=== PATIENT | female | born 1980 | race Caucasian/White ===

== ENCOUNTER 2017-12-01 00:19 | Emergency (ER) | payer MEDICAID ==
[~2017-12-01] VITALS: Ht 162.6 cm; Wt 69.0 kg
[~2017-12-01 00:19] MED LIST: ALBU0.63 NEB; ALBU8.5H5 INH; ALBU8.5H8 INH; ALPR0.25 PO; CEFD300C37 PO; DOXY100T PO; FLUT1BLS INH; FLUT1DIS; FLUT1DIS3 INH; FLUT1DIS5 IH; GUAI600T31 PO; IPRA3AMP30 INH; LEVO500T47 PO; LEVO750T26 PO; LORA-445 PO; LORA10TA75 PO; NICO-486 TD; ONDA4VIA8 PO; PRED10TA14 PO; PRED5TAB PO; SERT100T5 PO
[2017-12-01] MEDS ORDERED: EPINEPHRINE 1 MG/ML, 1ML ONE (00:21)
[2017-12-01] MEDS ORDERED: methylPREDNISolone SOD SUCC 125 MG/2 ML ONE (00:21)
[2017-12-01] MEDS ORDERED: FAMOTIDINE 20 MG/2 ML ONE (00:22)
[2017-12-01] MEDS ORDERED: AZITHROMYCIN 250 MG TABLET PO ONE (00:30)
[2017-12-01] MEDS ORDERED: methylPREDNISolone SOD SUCC 125 MG/2 ML IVP ONE (00:30)
[2017-12-01] MEDS ORDERED: MAGNESIUM SULFATE PMX 2GM/50ML 50 ML IVPB ONE (00:30)
[2017-12-01] MEDS ORDERED: IPRATROPIUM 0.5 MG/2.5 ML INHA NPPB ONE (00:30)
[2017-12-01] MEDS ORDERED: SODIUM CHLORIDE 0.9% 1,000ML IVBOLUS ONE (00:30)
[2017-12-01] MEDS ORDERED: ALBUTEROL/IPRATROPIUM 2.5MG/0.5MG, 3 ML ONE (00:34)
[2017-12-01] MEDS: ALBUTEROL 0.5%, 20ML NPPB SCH ×2 (00:37→01:27)
[2017-12-01] MEDS ORDERED: AZITHROMYCIN 250 MG TABLET ONE (00:39)
[2017-12-01 00:43] LABS: BASOPHILS # (AUTO) 0.06 x10^3/uL (0-0.1); BASOPHILS % (AUTO) 1 % (0-1); EOSINOPHILS # (AUTO) 0.82 x10^3/uL (0-0.4); EOSINOPHILS % (AUTO) 8 % (1-7); LYMPHOCYTES % (AUTO) 32 % (22-44); MD NO; MEAN CORPUSCULAR HEMOGLOBIN 34.7 pg (27.0-34.8); MEAN CORPUSCULAR HGB CONC 34.7 g/dL (32.4-35.8); MEAN CORPUSCULAR VOLUME 99.9 fL (80-100); MEAN PLATELET VOLUME 7.8 fL (7.4-10.4); MONOCYTES # (AUTO) 0.79 x10^3/uL (0.2-0.8); MONOCYTES % (AUTO) 8 % (2-9); NEUTROPHILS # (AUTO) 5.13 x10^3/uL (1.8-6.8); NEUTROPHILS % (AUTO) 51 % (42-75); PLATELET COUNT 256 x10^3/uL (130-400); RED BLOOD COUNT 3.82 x10^6/uL (3.82-5.3); RED CELL DISTRIBUTION WIDTH 13.6 % (9.6-15.2)
[2017-12-01 00:55] LABS: ALBUMIN 3.2 g/dL (3.4-5.0); ANION GAP 10 mmol/L (5-15); CALCIUM 8.6 mg/dL (8.5-10.1); CHLORIDE 108 mmol/L (98-107); CREATININE 0.63 mg/dL (0.55-1.02)
[2017-12-01 00:59] LABS: TROPONIN I < 0.015 ng/mL (0.000-0.045)
[2017-12-01 03:17] VITALS: BP 114/65
== END 2017-12-01 03:18 | disposition home or self-care (01) ==
LOC: ED 02:14
DX: T78.2XXA Anaphylactic shock, unspecified, initial encounter (principal); J45.41 Moderate persistent asthma with (acute) exacerbation; Z87.891 Personal history of nicotine dependence; J44.9 Chronic obstructive pulmonary disease, unspecified
CPT/HCPCS: 36415; 71045; 80048; 82040; 84484; 85025; 93005; 94640; 96365; 96366; 96375; 99291; J2930; J3475; J7030; J7644

== ENCOUNTER 2018-10-09 17:55 | Emergency (ER) | payer MEDICAID ==
[~2018-10-09] VITALS: Ht 162.6 cm; Wt 61.4 kg
[~2018-10-09 17:55] MED LIST changes: +ONDA4VIA60 PO; -ONDA4VIA8 PO; +SERT100T32 PO; -SERT100T5 PO
[2018-10-09 18:11] VITALS: BP 119/74
--- NOTE | 2018-10-09 18:40 | NUR ---
PT STATES TODAY SHE STARTED FEELING DIZZY TODAY AND THAT IS WHY SHE CAME TO THE ER
--- NOTE | 2018-10-09 18:40 | NUR ---
PT NOTED TO HAVE TO DIFFERENT LESIONS WITH A [place]Y [place]KE OF ERYTHEMA AROUND THEM. PT STATES THEY APPEARED 3 DAYS AGO AND THAT SHE BECAME NAUSEATED AT THE SAME TIME. PT STATES TODAY SHE VOMITED. SHE HAS UPPER BACK AND NECK PAIN THAT DEVELOPED. SHE ADDITONALLY COMPLAINS OF DENTAL PAIN. PT STATES THAT HER RECENTLY AND THAT SHE HAS BEEN SMOKING AND DRINKING MORE THAN NORMAL.
--- NOTE | 2018-10-09 19:22 | NUR ---
TASK RN: PT D/C WITH D/C SUMMARY. ALL QUESTIONS ANSWERED. PT AMBULATES TO REGISTRTION DESK WITH STEADY GAIT FOR D/C HOME. PT DENIES ANY OTHER NEEDS PERTAINING TO THIS VISIT.
--- NOTE | 2018-10-09 19:24 | NUR ---
Patient given discharge instructions and they have confirmed that they understand the instructions. Patient ambulatory with steady gait.
== END 2018-10-09 19:24 | disposition home or self-care (01) ==
LOC: ED 19:23
DX: T63.391A Toxic effect of venom of other spider, accidental (unintentional), initial encounter (principal); L03.116 Cellulitis of left lower limb; J44.9 Chronic obstructive pulmonary disease, unspecified; F41.1 Generalized anxiety disorder; F17.200 Nicotine dependence, unspecified, uncomplicated; Y92.89 Other specified places as the place of occurrence of the external cause; Y99.8 Other external cause status; Y93.89 Activity, other specified
CPT/HCPCS: 99283

== ENCOUNTER 2019-02-11 12:15 | Emergency (ER) | payer MEDICAID ==
[~2019-02-11] VITALS: Ht 162.6 cm; Wt 61.1 kg
[2019-02-11] MEDS ORDERED: SODIUM CHLORIDE FLUSH 10ML SYR IVF ONE (13:00)
[2019-02-11] MEDS ORDERED: DEXAMETHASONE 4 MG TABLET ONE (13:23)
[2019-02-11] MEDS ORDERED: DIPHENHYDRAMINE 50 MG CAPSULE ONE (13:23)
[2019-02-11] MEDS ORDERED: DEXAMETHASONE 4 MG TABLET PO ONE (13:30)
[2019-02-11] MEDS ORDERED: DIPHENHYDRAMINE 50 MG CAPSULE PO ONE (13:30)
[2019-02-11 13:54] VITALS: BP 123/88
--- NOTE | 2019-02-11 13:57 | NUR ---
BREAK RN NOTE: PT A&O, RESPS EVEN AND UNLABORED, TONGUE SWELLING RESOLVED. PT STATES SHE FEELS BETTER. PT ABLE TO SPEAK IN FULL SENTENCES WITHOUT DIFFICULTY, PT HAVING NO DIFFICULTY MANAGING OWN SECRETIONS. AWAITING MD REASSESSMENT AND DISPO. CALL LIGHT IN REACH.
--- NOTE | 2019-02-11 14:08 | NUR ---
REPORT GIVEN TO PRIMARY RN'S MARY.
--- NOTE | 2019-02-11 14:35 | NUR ---
Patient given discharge instructions and they have confirmed that they understand the instructions. Patient ambulatory with steady gait.
== END 2019-02-11 14:40 | disposition home or self-care (01) ==
LOC: ED 14:30
DX: T78.49XA Other allergy, initial encounter (principal); R22.9 Localized swelling, mass and lump, unspecified; J44.9 Chronic obstructive pulmonary disease, unspecified; X58.XXXA Exposure to other specified factors, initial encounter
CPT/HCPCS: 93005; 99283

== ENCOUNTER 2019-05-09 17:41 | Inpatient (IN) | payer MEDICAID ==
[~2019-05-09] VITALS: Ht 162.6 cm; Wt 65.0 kg
[2019-05-09] MEDS ORDERED: ALBUTEROL/IPRATROPIUM 2.5MG/0.5MG, 3 ML ONE ×2 (18:48)
[2019-05-09 19:00] LABS: BASOPHILS # (AUTO) 0.03 x10^3/uL (0-0.1); BASOPHILS % (AUTO) 1 % (0-1); EOSINOPHILS # (AUTO) 0.76 x10^3/uL (0-0.4); EOSINOPHILS % (AUTO) 13 % (1-7); LYMPHOCYTES % (AUTO) 42 % (22-44); MD NO; MEAN CORPUSCULAR HEMOGLOBIN 34.8 pg (27.0-34.8); MEAN CORPUSCULAR HGB CONC 34.1 g/dL (32.4-35.8); MEAN PLATELET VOLUME 7.9 fL (7.4-10.4); MONOCYTES % (AUTO) 7 % (2-9); NEUTROPHILS # (AUTO) 2.17 x10^3/uL (1.8-6.8); NEUTROPHILS % (AUTO) 38 % (42-75); PLATELET COUNT 235 x10^3/uL (130-400); RED BLOOD COUNT 3.91 x10^6/uL (3.82-5.3); RED CELL DISTRIBUTION WIDTH 13.3 % (9.6-15.2)
[2019-05-09] MEDS ORDERED: SODIUM CHLORIDE FLUSH 10ML SYR IVF ONE (19:00)
[2019-05-09] MEDS ORDERED: MAGNESIUM SULFATE PMX 2GM/50ML 50 ML IV ONE (19:00)
[2019-05-09] MEDS ORDERED: methylPREDNISolone SOD SUCC 125 MG/2 ML IV ONE (19:00)
--- NOTE | 2019-05-09 19:00 | NUR ---
ASSUMED CARE OF PT AT THIS TIME.
[2019-05-09] MEDS ORDERED: MAGNESIUM SULFATE PMX 2GM/50ML 50 ML ONE (19:06)
[2019-05-09] MEDS ORDERED: methylPREDNISolone SOD SUCC 125 MG/2 ML ONE (19:06)
[2019-05-09 19:07] LABS: ALBUMIN 3.7 g/dL (3.4-5.0); ANION GAP 5 mmol/L (5-15); CALCIUM 9.1 mg/dL (8.5-10.1); CHLORIDE 111 mmol/L (98-107); CREATININE 0.76 mg/dL (0.55-1.02)
[2019-05-09 19:11] LABS: TROPONIN I < 0.015 ng/mL (0.000-0.045)
--- NOTE | 2019-05-09 19:20 | NUR ---
RT AT BEDSIDE FOR 2ND TREATMENT. THIS IS A 38 YO FEMALE WHO PRESENTS TO THE ER C/O COUGH X 1 WEEK. PT HAS HX OF SEVERE ASTHMA AND REPORTS FEELING SOB AND DOING MX NEB TREATMENTS AT HOME W/O RELIEF. PT ABLE TO SPEAK IN FULL 7-10 WORD SENTENCES W/O DIFFICULTY. FREQUENT COUGH NOTED. PT MEDICATED ORDERED. PT ON CONT BP, CARDIAC AND O2 MONITORS. PT DENIES NEEDS AT THIS TIME. CALL LIGHT WITHIN REACH. WILL CONT TO MONITOR PT.
[2019-05-09] MEDS: ALBUTEROL/IPRATROPIUM 2.5MG/0.5MG, 3 ML NPPB SCH ×2 (19:21→19:28)
--- NOTE | 2019-05-09 20:30 | NUR ---
PT SLEEPING ON GURNEY IN QUIET, DARK ROOM. RESP EVEN AND UNLABORED. PT ON CONT BP AND 2O MONITORS. CALL LIGHT WITHIN REACH. WILL CONT TO MONITOR PT.
--- NOTE | 2019-05-09 21:29 | NUR ---
PT CURRENTLY DOZING ON BRADY. PT AWAKENS EASILY TO NAME BEING CALLED. NAD NOTED. SKIN PWD. RESP EVEN AND UNLABORED. COUGH IMPORVED AT THIS TIME. CALL LIGHT WITHIN REACH. WILL CONT TO MONITOR PT.
[2019-05-09] MEDS: methylPREDNISolone SOD SUCC 125 MG/2 ML IVPush SCH (21:51)
[2019-05-09] MEDS ORDERED: NICOTINE 21 MG/24 HR PATCH.TD24 ONE (21:53)
[2019-05-09] MEDS: NICOTINE 21 MG/24 HR PATCH.TD24 TD SCH (21:56)
[2019-05-09] MEDS ORDERED: ONDANSETRON 2MG/ML, 2ML IVPush PRN (22:00)
[2019-05-09] MEDS ORDERED: hydrALAzine 20 MG/ML, 1ML IVPush PRN (22:00)
[2019-05-09] MEDS ORDERED: ALBUTEROL/IPRATROPIUM 2.5MG/0.5MG, 3 ML NPPB PRN (22:00)
[2019-05-09 22:25] VITALS: BP 113/75
[2019-05-09] MEDS: ACETAMINOPHEN 325 MG TABLET PO PRN (22:56)
[2019-05-10] MEDS: ALBUTEROL/IPRATROPIUM 2.5MG/0.5MG, 3 ML NPPB SCH ×4 (00:48→19:27)
[2019-05-10 03:23] VITALS: BP 108/66
[2019-05-10] MEDS: methylPREDNISolone SOD SUCC 125 MG/2 ML IVPush SCH ×4 (03:27→23:08)
[2019-05-10 06:06] LABS: MEAN CORPUSCULAR HEMOGLOBIN 34.8 pg (27.0-34.8); MEAN CORPUSCULAR VOLUME 102.4 fL (80-100); MEAN PLATELET VOLUME 8.2 fL (7.4-10.4); PLATELET COUNT 247 x10^3/uL (130-400); RED BLOOD COUNT 4.04 x10^6/uL (3.82-5.3); RED CELL DISTRIBUTION WIDTH 13.4 % (9.6-15.2)
[2019-05-10 06:12] LABS: ANION GAP 9 mmol/L (5-15); CALCIUM 8.9 mg/dL (8.5-10.1); CHLORIDE 104 mmol/L (98-107)
[2019-05-10 06:13] LABS: CREATININE 0.85 mg/dL (0.55-1.02)
[2019-05-10] MEDS ORDERED: LORA10TA75 PO (06:19)
[2019-05-10 06:38] LABS: BASOPHILS # (AUTO) 0.01 x10^3/uL (0-0.1); BASOPHILS % (AUTO) 0 % (0-1); EOSINOPHILS % (AUTO) 0 % (1-7); LYMPHOCYTES # (AUTO) 0.64 x10^3/uL (1-3.4); LYMPHOCYTES % (AUTO) 15 % (22-44); MD SCAN; MONOCYTES # (AUTO) 0.05 x10^3/uL (0.2-0.8); MONOCYTES % (AUTO) 1 % (2-9); NEUTROPHILS # (AUTO) 3.65 x10^3/uL (1.8-6.8); NEUTROPHILS % (AUTO) 84 % (42-75)
[2019-05-10 07:30] VITALS: BP 116/78
[2019-05-10] MEDS: BUDESONIDE 0.5 MG/2 ML INHA NPPB SCH ×2 (08:04→19:27)
[2019-05-10] MEDS ORDERED: AZITHROMYCIN 500 MG TABLET PO ONE (09:00)
[2019-05-10] MEDS: DOXYCYCLINE 100MG TABLET PO SCH ×2 (09:44→20:03)
[2019-05-10] MEDS: GUAIFENESIN 200 MG TABLET PO SCH ×3 (09:44→20:04)
[2019-05-10] MEDS: CEFTRIAXONE PMX 2GM/50ML 50 ML IV SCH (09:44)
[2019-05-10] MEDS ORDERED: CALCIUM CARBONATE 500 MG TAB.CHEW PO PRN (11:00)
[2019-05-10] MEDS: INSULIN LISPRO 100 UNITS/ML, PEN SQ-INSULIN SCH ×3 (12:43→21:55)
[2019-05-10 13:45] VITALS: BP 100/58
[2019-05-10] MEDS: LORATADINE 10 MG TABLET PO SCH (13:46)
[2019-05-10 19:10] VITALS: BP 119/62
[2019-05-10] MEDS: NICOTINE 21 MG/24 HR PATCH.TD24 TD SCH (21:55)
[2019-05-11] MEDS ORDERED: MAGNESIUM SULFATE PMX 2GM/50ML 50 ML IV ONE ×2 (02:00→09:30)
[2019-05-11] MEDS: ALBUTEROL/IPRATROPIUM 2.5MG/0.5MG, 3 ML NPPB SCH ×5 (02:21→20:08)
[2019-05-11] MEDS ORDERED: LORazepam 2 MG/ML, 1ML IVPush ONE (02:30)
[2019-05-11] MEDS: methylPREDNISolone SOD SUCC 125 MG/2 ML IVPush SCH ×4 (04:52→23:06)
[2019-05-11] MEDS: BUDESONIDE 0.5 MG/2 ML INHA NPPB SCH ×2 (07:20→20:08)
[2019-05-11] MEDS: INSULIN LISPRO 100 UNITS/ML, PEN SQ-INSULIN SCH (08:17)
[2019-05-11] MEDS: GUAIFENESIN 200 MG TABLET PO SCH (08:17)
[2019-05-11] MEDS: LORATADINE 10 MG TABLET PO SCH (08:17)
[2019-05-11] MEDS: DOXYCYCLINE 100MG TABLET PO SCH ×2 (08:17→21:03)
[2019-05-11 08:20] LABS: MEAN CORPUSCULAR HEMOGLOBIN 34.7 pg (27.0-34.8); MEAN CORPUSCULAR HGB CONC 33.4 g/dL (32.4-35.8); MEAN CORPUSCULAR VOLUME 103.7 fL (80-100); MEAN PLATELET VOLUME 7.9 fL (7.4-10.4); PLATELET COUNT 255 x10^3/uL (130-400); RED BLOOD COUNT 3.79 x10^6/uL (3.82-5.3); RED CELL DISTRIBUTION WIDTH 13.7 % (9.6-15.2)
[2019-05-11 08:21] LABS: ANION GAP 7 mmol/L (5-15); CALCIUM 8.3 mg/dL (8.5-10.1); CHLORIDE 109 mmol/L (98-107)
[2019-05-11 08:37] LABS: BASOPHILS % (AUTO) 0 % (0-1); EOSINOPHILS % (AUTO) 0 % (1-7); LYMPHOCYTES # (AUTO) 0.45 x10^3/uL (1-3.4); LYMPHOCYTES % (AUTO) 4 % (22-44); MD SCAN; MONOCYTES # (AUTO) 0.21 x10^3/uL (0.2-0.8); MONOCYTES % (AUTO) 2 % (2-9); NEUTROPHILS # (AUTO) 11.96 x10^3/uL (1.8-6.8); NEUTROPHILS % (AUTO) 95 % (42-75)
[2019-05-11] MEDS ORDERED: ALBUTEROL 0.5%, 20ML NPPBCONT PRN (08:40)
[2019-05-11] MEDS ORDERED: ALBUTEROL SULFATE 2.5 MG/3 ML ONE ×2 (08:52→09:04)
[2019-05-11] MEDS ORDERED: LORazepam 2 MG/ML, 1ML ONE (09:01)
[2019-05-11] MEDS ORDERED: ALBUTEROL 0.5%, 20ML ONE (09:03)
[2019-05-11] MEDS: CEFTRIAXONE PMX 2GM/50ML 50 ML IV SCH (09:04)
[2019-05-11] MEDS ORDERED: MAGNESIUM SULFATE PMX 2GM/50ML 50 ML ONE (09:06)
[2019-05-11] MEDS: GUAIFENESIN ER 600 MG TABLET PO SCH ×2 (09:07→21:06)
[2019-05-11] MEDS: LORazepam 2 MG/ML, 1ML IVPush PRN (09:09)
[2019-05-11] MEDS: INSULIN LISPRO 100 UNITS/ML, PEN MEDIUM DOSE SS SQ-INSULIN SCH ×3 (11:21→21:10)
[2019-05-11] MEDS: ACETAMINOPHEN 325 MG TABLET PO PRN (16:10)
[2019-05-11] MEDS: NICOTINE 21 MG/24 HR PATCH.TD24 TD SCH (23:04)
[2019-05-12] MEDS: ALBUTEROL/IPRATROPIUM 2.5MG/0.5MG, 3 ML NPPB SCH ×7 (00:24→22:07)
[2019-05-12] MEDS: ACETAMINOPHEN 325 MG TABLET PO PRN (04:10)
[2019-05-12] MEDS: methylPREDNISolone SOD SUCC 125 MG/2 ML IVPush SCH ×4 (04:11→22:15)
[2019-05-12 06:30] LABS: BASOPHILS # (AUTO) 0.01 x10^3/uL (0-0.1); BASOPHILS % (AUTO) 0 % (0-1); EOSINOPHILS % (AUTO) 0 % (1-7); LYMPHOCYTES # (AUTO) 0.55 x10^3/uL (1-3.4); LYMPHOCYTES % (AUTO) 4 % (22-44); MD NO; MEAN CORPUSCULAR HEMOGLOBIN 34.4 pg (27.0-34.8); MEAN CORPUSCULAR HGB CONC 32.9 g/dL (32.4-35.8); MEAN CORPUSCULAR VOLUME 104.7 fL (80-100); MEAN PLATELET VOLUME 7.9 fL (7.4-10.4); MONOCYTES # (AUTO) 0.31 x10^3/uL (0.2-0.8); MONOCYTES % (AUTO) 2 % (2-9); NEUTROPHILS # (AUTO) 13.19 x10^3/uL (1.8-6.8); NEUTROPHILS % (AUTO) 94 % (42-75); PLATELET COUNT 239 x10^3/uL (130-400); RED BLOOD COUNT 3.58 x10^6/uL (3.82-5.3); RED CELL DISTRIBUTION WIDTH 13.7 % (9.6-15.2)
[2019-05-12 06:37] LABS: ANION GAP 7 mmol/L (5-15); CALCIUM 8.2 mg/dL (8.5-10.1); CHLORIDE 108 mmol/L (98-107); CREATININE 0.65 mg/dL (0.55-1.02)
[2019-05-12] MEDS: INSULIN LISPRO 100 UNITS/ML, PEN MEDIUM DOSE SS SQ-INSULIN SCH ×4 (07:00→21:03)
[2019-05-12] MEDS: BUDESONIDE 0.5 MG/2 ML INHA NPPB SCH ×2 (07:25→18:15)
[2019-05-12] MEDS: LORATADINE 10 MG TABLET PO SCH (07:53)
[2019-05-12] MEDS: CEFTRIAXONE PMX 2GM/50ML 50 ML IV SCH (07:53)
[2019-05-12] MEDS: GUAIFENESIN ER 600 MG TABLET PO SCH ×2 (07:53→22:15)
[2019-05-12] MEDS: DOXYCYCLINE 100MG TABLET PO SCH ×2 (07:53→22:15)
[2019-05-12] MEDS ORDERED: ENOXAPARIN 40 MG/0.4 ML SQ SCH (15:30)
[2019-05-12 17:40] VITALS: BP 112/80
[2019-05-12 19:44] VITALS: BP 111/69
[2019-05-12] MEDS: NICOTINE 21 MG/24 HR PATCH.TD24 TD SCH (22:16)
[2019-05-13 02:00] VITALS: BP 126/76
[2019-05-13] MEDS: ALBUTEROL/IPRATROPIUM 2.5MG/0.5MG, 3 ML NPPB SCH ×2 (03:00→06:44)
[2019-05-13] MEDS: LORazepam 2 MG/ML, 1ML IVPush PRN (03:45)
[2019-05-13] MEDS: methylPREDNISolone SOD SUCC 125 MG/2 ML IVPush SCH ×2 (03:48→10:15)
[2019-05-13] MEDS: BUDESONIDE 0.5 MG/2 ML INHA NPPB SCH (06:44)
[2019-05-13] MEDS: INSULIN LISPRO 100 UNITS/ML, PEN MEDIUM DOSE SS SQ-INSULIN SCH ×2 (07:00→11:09)
[2019-05-13] MEDS: CEFTRIAXONE PMX 2GM/50ML 50 ML IV SCH (08:03)
[2019-05-13] MEDS: LORATADINE 10 MG TABLET PO SCH (08:03)
[2019-05-13] MEDS: DOXYCYCLINE 100MG TABLET PO SCH (08:03)
[2019-05-13] MEDS: GUAIFENESIN ER 600 MG TABLET PO SCH (08:03)
[2019-05-13 08:09] VITALS: BP 126/85
[2019-05-13] MEDS ORDERED: PRED20TA PO (12:21)
[2019-05-13] MEDS ORDERED: FLUT1DIS3 INH (12:21)
[2019-05-13] MEDS ORDERED: AMOX1TAB64 PO (12:21)
== END 2019-05-13 13:33 | disposition home or self-care (01) | DRG 190 ==
LOC: ED 21:33 → EDIP 21:48 → 3N 22:20 → CCU 05-11 02:14 → 4WST 05-12 17:30
PROVIDERS: ADMIT Family Medicine; ATTEND Hospitalist
DX: J44.0 Chronic obstructive pulmonary disease with (acute) lower respiratory infection (principal); J18.9 Pneumonia, unspecified organism; J96.11 Chronic respiratory failure with hypoxia; J45.52 Severe persistent asthma with status asthmaticus; F12.90 Cannabis use, unspecified, uncomplicated; G40.909 Epilepsy, unspecified, not intractable, without status epilepticus; T38.0X5A Adverse effect of glucocorticoids and synthetic analogues, initial encounter; D75.89 Other specified diseases of blood and blood-forming organs; J20.9 Acute bronchitis, unspecified; F17.210 Nicotine dependence, cigarettes, uncomplicated; F41.1 Generalized anxiety disorder; Z80.8 Family history of malignant neoplasm of other organs or systems; Z71.6 Tobacco abuse counseling; Z91.19 Patient's noncompliance with other medical treatment and regimen; Z99.81 Dependence on supplemental oxygen; Y92.89 Other specified places as the place of occurrence of the external cause; Z87.01 Personal history of pneumonia (recurrent); Z79.899 Other long term (current) drug therapy
CPT/HCPCS: 36415; 36600; J7611; J7620; J7626; 71045; 80048; 82040; 82607; 82803; 82962; 83735; 83880; 84443; 84484; 85025; 87081; 93005; 94640; 94644; 94660; G0378; J0696; J1650; J1815; J2060; J2930; J3475

== ENCOUNTER 2020-07-12 16:48 | Emergency (ER) | payer MEDICAID ==
[~2020-07-12] VITALS: Ht 162.6 cm; Wt 59.1 kg
[~2020-07-12 16:48] MED LIST changes: +AMOX1TAB64 PO; +PRED20TA PO
[2020-07-12 17:08] VITALS: BP 119/82
--- NOTE | 2020-07-12 17:11 | NUR ---
Pt hit arm on wall 3 days ago and now is noticing broken capillaries around her arm, pt states that her ibprophen doenst take away the pain. Pt has full range of motion but discomfort with movement. Placed on BP and O2 monitors, NADN. TERENCE Denies other needs at this time.
== END 2020-07-12 17:51 | disposition home or self-care (01) ==
LOC: ED 17:45
DX: M79.621 Pain in right upper arm (principal); R42 Dizziness and giddiness; J44.9 Chronic obstructive pulmonary disease, unspecified
CPT/HCPCS: 99281